=== PATIENT | male | born 1955 | race Caucasian/White ===

== ENCOUNTER 2017-08-20 14:10 | Emergency (ER) | payer OTHER ==
[~2017-08-20 14:10] MED LIST: NOR10T PO; PRILOSEC10 MG PO
[2017-08-20 17:34] VITALS: BP 113/52
== END 2017-08-20 17:34 | disposition home or self-care (01) ==
LOC: ED 14:10
DX: R30.0 Dysuria (principal); B19.20 Unspecified viral hepatitis C without hepatic coma

== ENCOUNTER 2019-03-05 13:46 | Inpatient (IN) | payer OTHER ==
[~2019-03-05] VITALS: Ht 177.8 cm; Wt 67.1 kg
--- NOTE | 2019-03-05 14:25 | NUR ---
PT IN ED FOR WOUND TO RT LATERAL FOOT. STS HAD ABCESS LANCED X3 DAYS AGO BY PCP AND WAS TOLD TO COME TODAY FOR FOLLOW UP BUT STS DOCTOR "CALLED OFF" AND SO PT CAME TO ED. PT STS TAKING ABX PRESCRIBED. ERYTHEMA NOTTED TO AREA.
[2019-03-05 15:48] LABS: BASOPHIL % 0.4 % (0-2); PLATELET COUNT 165 x10^3mcL (130-400); RED CELL DISTRIBUTION WIDTH 13.6 % (11.5-14.5)
--- NOTE | 2019-03-05 15:50 | NUR ---
PT IN GURNEY IN POSITION OF COMFORT, RESP E/U WITH EYES CLOSED. RESPONDS TO VERBAL STIMULI.
[2019-03-05 15:58] LABS: CALCIUM 8.7 mg/dL (8.5-10.1); CARBON DIOXIDE 25.8 mmol/L (21-32); CHLORIDE SERUM 108 mmol/L (98-107); CREATININE SERUM 0.9 mg/dL (0.7-1.3); GFR1 > 60 mL/min; GLUCOSE SERUM 94 mg/dL (74-106); POTASSIUM SERUM 3.8 mmol/L (3.5-5.1); SODIUM SERUM 143 mmol/L (136-145)
--- NOTE | 2019-03-05 17:37 | NUR ---
PT IN [facility] IN POSITION OF COMFORT, NO DISTRESS.
--- NOTE | 2019-03-05 18:07 | NUR ---
EPORT GIVEN TO KIZZY BIRMINGHAM TO ASSUME CARE. WOUND CULTURE COLLECTED ND SENT.
--- NOTE | 2019-03-05 18:24 | NUR ---
RECEIVED PT VIA W/C FROM E/D, ACCOMPANIED BY TRANSPORTER. PT A/A/O X 4, CALM, COOPERATIVE. PT W/ GENERALIZED WEAKNESS, BUT ABLE TO AMBULATE W/ ASSISTANCE AND A CANE, C/O INTERMITTENT SHARP PAIN TO RIGHT FOOT EXACERBATED BY MOVEMENT AND WALKING, RELIEVED BY REST AND PAIN MEDICATION, 03/31; FALL RISK PROTOCOL IN PLACE; R FOOT +2 PITTING EDEMA, WEAK PEDAL PULSE, SCD BY BEDSIDE, CAP REFILL < 3 SECS; OPEN WOUND + PACKING TO R LATERAL FOOT + ERYTHEMA. NO ACUTE RESPIRATORY DISTRESS NOTED. WEARS FULL UPPER AND LOWER DENTURES. IV SITE 22G, CDI. ORIENTED PT TO ROOM, BED CONTROLS, CALL LIGHT SYSTEM. SIDE RAILS UP X 2, BED IN LOW POSITION. WILL ENDORSE TO KIZZY [place]ING[place].
--- NOTE | 2019-03-05 18:37 | NUR ---
RECEIVED PATIENT FROM ER. ALERT/ORIETNED X4; STATED RT FOOT SWOLLEN W/ PAIN, PATIENT HAD I AND D OF RT FOOT 3 DAYS AGO. VANCO 1GM IV STARTED FROM ER. IV TO L HAND W/ 22 G NEEDLE INTACT AND PATENT. RT FOOT SWELLING. RT PEDAL PULSE WEAK. CALL LIGHT IN REACH.
[2019-03-05 18:47] VITALS: BP 134/91
--- NOTE | 2019-03-05 20:00 | NUR ---
RCEIVED PT LYING IN BED IN SUPINE POSITION WITH RLE ELEVATED WITH PILLOW. WOUND TO RIGHT LATERAL FOOT WITH PACKING CLEAN UP HELPER BANQUET; REDNESS AND SWELLING NOTED, APPEARS TO HAVE PITTING EDEMA, WEAK RIGHT PEDAL PULSE NOTED. PT PAIN LEVEL IS TOLERABLE AT THIS TIME. DENIES CHEST PAIN OR PRESSURE. LUNG SOUNDS CLEAR. BREATHING EASILY ON ROOM AIR. BS ACTIVE IN ALL FOUR QUADS. NO ABD PAIN NOTED. PT IS VOIDING FREELY WITH URINAL AT BEDSIDE. IV TO LEFT HAND INFUSING NS AT 150ML/HR X1 BAG THEN HL. SHIFT ASSESSMENT COMPLETED. CALL LIGHT WITHIN REACH. BED IS IN LOWEST POSITION. WILL CONTINUE TO MONITOR CLOSELY.
[2019-03-05 21:29] VITALS: BP 112/68
--- NOTE | 2019-03-06 05:05 | NUR ---
PT SLEPT WELL THROUGH OUT THE NIGHT. NO DISTRESS NOTED. IV NS AT 150ML/HR X1 BAG COMPLETED. ZOSYN INFUSING WELL AT THIS TIME. WILL CONTINUE TO MONITOR CLOSELY.
[2019-03-06 05:47] VITALS: BP 95/71
--- NOTE | 2019-03-06 06:30 | NUR ---
VANCO INFUSING TO LEFT HAND WITH NO S/S OF INFILTRATION. PT APPEARS TO BE RESTING IN BED. ALL NEEDS TENDED TO. CALL LIGHT WITHIN REACH. WILL ENDORSE TO INCOMING SHIFT.
--- NOTE | 2019-03-06 07:15 | NUR ---
RECEIVED PT. IN BED A/A/O X3. NO SOB, NO N/V NOTED. PT. DENIES ANY PAIN AT THIS TIME. IV SITE NOTED TO L HAND. SCD TO BLE MAINTAINED. BED IN LOW POS., CALL LIGHT WITHIN REACH. SIDE RAILS UP X3.
[2019-03-06 07:27] LABS: BASOPHIL % 0.2 % (0-2); PLATELET COUNT 151 x10^3mcL (130-400); RED CELL DISTRIBUTION WIDTH 13.8 % (11.5-14.5)
[2019-03-06 07:40] LABS: CALCIUM 8.3 mg/dL (8.5-10.1); CARBON DIOXIDE 23.8 mmol/L (21-32); CHLORIDE SERUM 108 mmol/L (98-107); CREATININE SERUM 0.8 mg/dL (0.7-1.3); GFR1 > 60 mL/min; GLUCOSE SERUM 115 mg/dL (74-106); POTASSIUM SERUM 3.8 mmol/L (3.5-5.1); SODIUM SERUM 143 mmol/L (136-145)
[2019-03-06 09:30] VITALS: BP 106/64
--- NOTE | 2019-03-06 17:26 | NUR ---
REMAINS IN STABLE CONDITION AT THIS TIME. WILL CONTINUE TO MONITOR.
[2019-03-06 17:53] VITALS: BP 126/73
--- NOTE | 2019-03-06 19:57 | NUR ---
Awake and verbally responsive. No respiratory distress noted on room air. Denies pain. Denies n/v. Right leg with erythema and edema. Right foot wound -BRYANNA. Pulses palpable. Will cont.to monitor. Call light within reach.
[2019-03-06 21:58] VITALS: BP 161/66
--- NOTE | 2019-03-07 04:14 | NUR ---
Afebrile. No significant change in condition noted. Cont.on IV zosyn, vancomycin. No adverse reaction noted. In no apparent distress.
[2019-03-07 05:51] VITALS: BP 90/66
--- NOTE | 2019-03-07 07:25 | NUR ---
PT IS AAOX4. RESP EVEN AND UNLABORED. LUNG SOUNDS CTA. ON R/A. NORMAL S1S2 NOTED. ABDOMEN SOFT, FLAT, NONDISTENDED, NONTENDER. BOWEL SOUNDS ACTIVE. PT HAS R ANKLE SWELLING COVERED WITH CDI DRESSING ELEVATED ON PILLOW. IV CATH TO RFA N/S LOCKED, FLUSHED AND PATENT. PT DENIES PAIN AND DISCOMFORT AT THIS TIME. CALL LIGHT WITHIN REACH. BED IN LOWEST POSITION.
[2019-03-07 08:38] VITALS: BP 112/63
--- NOTE | 2019-03-07 10:00 | NUR ---
PT RESTING IN BED BUT EASILY AROUSABLE TO VERBAL STIMULI. RESP EVEN AND UNLABORED. NO DISTRESS NOTED. CALL LIGHT WITHIN REACH.
--- NOTE | 2019-03-07 12:37 | NUR ---
IV CATH TO LH UNCOMFORTABLE TO PT. REMOVED WITH CATH INTACT. COVERED WITH GAUZE AND BANDAID. SITE WNL. NO S/S OF INFECTION NOTED. NEW IV CATH 22G STARTED TO RFA. COVERED WITH CDI OCCLUSIVE DRESSING. SITE WNL. PT TOLERATED PROCEDURE WELL. PT DENIES PAIN AT THIS TIME. CALL LIGHT WITHIN REACH.
[2019-03-07] MEDS ORDERED: AUG500 PO (14:31)
[2019-03-07] MEDS ORDERED: CLEOCIN HCL300 MG PO (14:31)
[2019-03-07 16:55] VITALS: BP 112/63
--- NOTE | 2019-03-07 16:58 | NUR ---
SPOKE TO DR. YAP. DR YAP STATED PT DOES NOT NEED I AND D AND MAY DISCHARGE TODAY. PT IS TO HAVE FOLLOW UP APPT AT [facility] ON 03/13/19 AT [address] REPORT[address] TO DR. FREEMAN, DR. FREEMAN STATED PT IS OKAY TO DISCHARGED TODAY. PT MADE AWARE.
--- NOTE | 2019-03-07 17:00 | NUR ---
PT REFUSED TO LET MANAGER MANAGEMENT TAKE VITAL SIGNS STATING HE IS LEAVING SOON. PT REFUSED TO HAVE PICTURE OF R FOOT TAKEN FOR DISCHARGE STATING HE IS IN A HURRY AND PLEASE BRING HIS DISCHARGE FORMS.
[2019-03-07 17:05] VITALS: BP 112/63
--- NOTE | 2019-03-07 17:31 | NUR ---
PT DISCHARGED TO HOME IN NO DISTRESS. DISCHARGE ORDERS REVIEWED, ALL FORMS SIGNED AND PLACE IN PT'S CHART. RX GIVEN TO PT. IV CATH TO RFA REMOVED, SITE WNL, COVERED WITH GAUZE AND BANDAID. VS: TEMP 98.8, HR 66, RR17, BP 112/63, O2 SAT 95% ON R/A. PT DENIES PAIN AND DISCOMFORT AT TIME OF D/C. ALL PERSONAL BELONGINGS TAKEN HOME. REVIEWED WOUND CARE WITH PT, PT VERBALIZED UNDERSTANDING. PT GIVEN WOUND CARE SUPPLIES UPON DISCHARGE.
[2019-03-08 12:52] VITALS: Ht 177.8 cm; Wt 67.1 kg
== END 2019-03-07 17:31 | disposition home or self-care (01) | DRG 603 ==
LOC: ED 13:46 → DU 17:05 → MU 17:05
PROVIDERS: Specialist; ADMIT Internal Medicine
DX: L03.115 Cellulitis of right lower limb (principal); L02.611 Cutaneous abscess of right foot; B18.2 Chronic viral hepatitis C; K21.9 Gastro-esophageal reflux disease without esophagitis; F15.10 Other stimulant abuse, uncomplicated; I73.9 Peripheral vascular disease, unspecified; F17.210 Nicotine dependence, cigarettes, uncomplicated; Z68.21 Body mass index [BMI] 21.0-21.9, adult
CPT/HCPCS: G0378; J0696; J2543; J3370; J7030; J7050; Q0092

== ENCOUNTER 2019-06-14 16:18 | Emergency (ER) | payer OTHER ==
[~2019-06-14] VITALS: Ht 175.3 cm; Wt 66.7 kg
[~2019-06-14 16:18] MED LIST changes: +AUG500 PO; +CLEOCIN HCL300 MG PO
[2019-06-14 16:44] VITALS: Ht 175.3 cm; Wt 66.7 kg
[2019-06-14 18:23] LABS: BASOPHIL % 0.3 % (0-2); PLATELET COUNT 177 x10^3mcL (130-400); RED CELL DISTRIBUTION WIDTH 13.7 % (11.5-14.5)
[2019-06-14 18:30] LABS: CALCIUM 8.2 mg/dL (8.5-10.1); CARBON DIOXIDE 27.9 mmol/L (21-32); CHLORIDE SERUM 105 mmol/L (98-107); GFR1 > 60 mL/min; GLUCOSE SERUM 102 mg/dL (74-106); POTASSIUM SERUM 3.4 mmol/L (3.5-5.1); SODIUM SERUM 141 mmol/L (136-145)
[2019-06-14 18:35] LABS: ALBUMIN 3.5 g/dL (3.4-5.0); ALKALINE PHOSPHATASE 70 U/L (46-116); ALT/SGPT 54 U/L (16-63); AST/SGOT 39 U/L (15-37); BILIRUBIN TOTAL 0.5 mg/dL (0.20-1.00); TOTAL PROTEIN, SERUM 6.4 g/dL (6.4-8.2)
[2019-06-14 20:45] VITALS: BP 138/53
== END 2019-06-14 20:45 | disposition home or self-care (01) ==
LOC: ED 16:18
PROVIDERS: Emergency Medicine
DX: J40 Bronchitis, not specified as acute or chronic (principal)
CPT/HCPCS: 36415

== ENCOUNTER 2020-04-03 19:27 | Emergency (ER) | payer OTHER, SELFPAY ==
[~2020-04-03] VITALS: Ht 175.3 cm; Wt 67.6 kg
[2020-04-03 19:29] VITALS: Ht 175.3 cm; Wt 67.6 kg
[2020-04-03 20:37] VITALS: BP 116/70
== END 2020-04-03 20:37 | disposition home or self-care (01) ==
LOC: ED 19:27
DX: B34.9 Viral infection, unspecified (principal); Z20.828 Contact with and (suspected) exposure to other viral communicable diseases; Z86.19 Personal history of other infectious and parasitic diseases
CPT/HCPCS: U0003-CS